=== PATIENT | female | born 1985 | race Hispanic/Latino ===

== ENCOUNTER 2020-01-15 05:28 | Emergency (ER) | payer MEDICAID ==
[~2020-01-15 05:28] MED LIST: CENTRUM PO
[2020-01-15] MEDS ORDERED: LIDOCAINE HCL 2% VISCOUS 15 ML UDCUP ONE (05:53)
[2020-01-15] MEDS ORDERED: MAG HYDROX/AL HYDROX/SIMETH ES 30 ML SUSP UDCUP ONE (05:53)
[2020-01-15] MEDS ORDERED: SODIUM CHLORIDE 0.9% 1000ML 1,000 ML IV ONE (05:54)
[2020-01-15] MEDS ORDERED: ONDANSETRON HCL 4 MG/2 ML VIAL ONE (05:54)
[2020-01-15 05:58] LABS: BASOPHILS % (AUTO) 0.2 % (0.0-5.0); EOSINOPHILS % (AUTO) 0.3 % (0.0-8.0); LYMPHOCYTES % (AUTO) 6.7 % (21.0-51.0); MEAN CORPUSCULAR HEMOGLOBIN 30.2 pg (27.0-33.0); MEAN CORPUSCULAR HGB CONC 33.7 g/dL (32.0-36.0); MEAN CORPUSCULAR VOLUME 89.6 fL (79-99); NEUTROPHILS % (AUTO) 90.4 % (40.0-77.0); PLATELET COUNT (AUTO) 407 K/uL (130-400); RED CELL DISTRIBUTION WIDTH 11.9 % (11.0-15.5); WHITE BLOOD COUNT (AUTO) 11.8 K/uL (4.8-10.8)
[2020-01-15 06:04] LABS: APPEARANCE,URINE Turbid (CLEAR); BILIRUBIN,URINE Negative (NEGATIVE); COLOR,URINE Yellow (YELLOW); GLUCOSE, URINE (UA) TRACE mg/dL (NEGATIVE); KETONES,URINE >=160 mg/dL (NEGATIVE); LEUKOCYTE ESTERASE ,URINE Trace (NEGATIVE); NITRATE,URINE Negative (NEGATIVE); OCCULT BLOOD,URINE Negative (NEGATIVE); PROTEIN,URINE POS 1+ mg/dL (NEGATIVE)
[2020-01-15 06:08] LABS: HCG,QUAL RESULT NEGATIVE (NEGATIVE)
[2020-01-15 06:13] LABS: AMPHET/METH SCREEN,URINE NEGATIVE (NEGATIVE); BARBITURATE SCREEN, URINE NEGATIVE (NEGATIVE); BENZODIAZEPINES SCREEN,URINE NEGATIVE (NEGATIVE); CANNABINOID SCREEN,URINE POSITIVE (NEGATIVE); COCAINE SCREEN,URINE NEGATIVE (NEGATIVE); OPIATE SCREEN,URINE NEGATIVE (NEGATIVE); PHENCYCLIDINE SCREEN,URINE NEGATIVE (NEGATIVE)
[2020-01-15 06:22] LABS: CARBON DIOXIDE 27 mmol/L (21-32); CHLORIDE 101 mmol/L (101-111); GLOMERULAR FILTR. RATE CALC 68 mL/min (>60); GLUCOSE,RANDOM 140 mg/dL (70-105); POTASSIUM 3.7 mmol/L (3.5-5.1); SODIUM SERUM 139 mmol/L (136-145); UREA NITROGEN, BLOOD 10 mg/dL (7-18)
[2020-01-15 06:23] LABS: ALANINE AMINOTRANSFERASE 26 U/L (12-78); ALBUMIN 4.5 g/dL (3.5-5.0); ASPARTATE AMINOTRANSFERASE 18 U/L (10-37); BILIRUBIN,DIRECT 0.2 mg/dL (0.0-0.3); BILIRUBIN,TOTAL 0.9 mg/dL (0.2-1.0); TOTAL PROTEIN, SERUM 8.7 g/dL (6.0-8.3)
[2020-01-15 06:51] LABS: LIPASE < 50 U/L (114-286)
[2020-01-15 07:30] LABS: BACTERIA,URINE Moderate /HPF (None Seen); RBC,URINE 0-1 /HPF (0-1)
== END 2020-01-15 07:15 | disposition home or self-care (01) ==
LOC: EDH 05:28
DX: K29.00 Acute gastritis without bleeding (principal); F12.10 Cannabis abuse, uncomplicated
CPT/HCPCS: 36415; 80048; 80076; 80305; 81001; 81025; 83690; 85025; 96361; 96374; 99283; J2405; J7030

== ENCOUNTER 2021-09-21 22:39 | Observation (INO) | payer MEDICAID ==
[~2021-09-21] VITALS: Ht 154.9 cm; Wt 63.5 kg
[2021-09-21] MEDS ORDERED: 0.9%NACL 1000ML 1,000 ML IV ONE (23:06)
[2021-09-21] MEDS ORDERED: LACTATED RINGERS 1000ML 1,000 ML IV ONE (23:06)
[2021-09-21] MEDS ORDERED: ONDANSETRON 4MG INJ ONE (23:42)
[2021-09-21 23:45] LABS: BASOPHILS % (AUTO) 0.2 % (0.0-5.0); EOSINOPHILS % (AUTO) 0.4 % (0.0-8.0); HEMATOCRIT 34.6 % (36-48); MEAN CORPUSCULAR HEMOGLOBIN 30.4 pg (27.0-33.0); MEAN CORPUSCULAR HGB CONC 35.3 g/dL (32.0-36.0); MEAN CORPUSCULAR VOLUME 86.3 fL (79-99); MONOCYTES % (AUTO) 7.6 % (3.0-13.0); NEUTROPHILS % (AUTO) 74.4 % (40.0-77.0); PLATELET COUNT (AUTO) 398 K/uL (130-400); RED BLOOD CELL COUNT(AUTO) 4.01 MIL/uL (4.00-5.50); RED CELL DISTRIBUTION WIDTH 11.9 % (11.0-15.5)
[2021-09-21 23:50] LABS: POTASSIUM 3.4 mmol/L (3.5-5.1)
[2021-09-22] VITALS (13 sets, daily range): BP systolic 92–116; BP diastolic 54–71
[2021-09-22] MEDS ORDERED: NACL IV SCH ×2
[2021-09-22] MEDS ORDERED: DEXTROSE IV SCH ×2
[2021-09-22] MEDS ORDERED: OXYTOCIN 10 USP UNITS/ML ONE ×2 (00:06→06:18)
[2021-09-22] MEDS ORDERED: DEXTROSE 5%-LACTATED RINGERS 1,000 ML IV ONE (00:14)
[2021-09-22 00:19] LABS: BILIRUBIN,TOTAL 0.9 mg/dL (0.2-1.0); TOTAL PROTEIN, SERUM 8.2 g/dL (6.0-8.3)
[2021-09-22 01:07] LABS: HEMATOCRIT 25.4 % (36-48)
[2021-09-22] MEDS ORDERED: OXYTOCIN IV SCH ×3 (02:30)
[2021-09-22] MEDS ORDERED: USP IV SCH ×3 (02:30)
[2021-09-22] MEDS ORDERED: DEXTROSE 5% IV SCH (02:30)
[2021-09-22] MEDS ORDERED: LACTATED RINGERS IV SCH (02:30)
[2021-09-22] MEDS ORDERED: LIDOCAINE PF 100MG/5ML (2%) SYRINGE 5ML ONE (05:41)
[2021-09-22] MEDS ORDERED: SUCCINYLCHOLINE CHLORIDE 20 MG/ML 10 ML VIAL ONE (05:41)
[2021-09-22] MEDS ORDERED: FENTANYL CITRATE PF 50 MCG/1 ML 2ML VIAL ONE (05:42)
[2021-09-22] MEDS ORDERED: MIDAZOLAM HCL 1 MG/ML 2ML VIAL ONE (05:42)
[2021-09-22] MEDS ORDERED: PROPOFOL 10 MG/ML 20ML VIAL IV ONE (05:42)
[2021-09-22] MEDS ORDERED: ROCURONIUM 10MG/1ML SYR 10 MG/ML ML ONE (05:42)
[2021-09-22] MEDS ORDERED: ONDANSETRON 4MG INJ ONE (05:44)
[2021-09-22] MEDS ORDERED: PHENYLEPHRINE HCL 10 MG/ML 1ML VIAL IV ONE (06:22)
[2021-09-22] MEDS ORDERED: CEFAZOLIN SODIUM 1 GM VIAL ONE (06:25)
[2021-09-22 10:24] LABS: HEMATOCRIT 18.2 % (36-48)
[2021-09-22] MEDS ORDERED: 0.9% NACL 500ML IV.SOLN 500 ML IV SCH (11:30)
[2021-09-22] MEDS ORDERED: IBUP-2070 PO (17:13)
[2021-09-22] MEDS ORDERED: FERR325T22 PO (17:14)
[2021-09-22 18:07] LABS: MEAN CORPUSCULAR HEMOGLOBIN 29.9 pg (27.0-33.0); MEAN CORPUSCULAR HGB CONC 33.7 g/dL (32.0-36.0); MEAN CORPUSCULAR VOLUME 88.8 fL (79-99); RED BLOOD CELL COUNT(AUTO) 3.04 MIL/uL (4.00-5.50); WHITE BLOOD COUNT (AUTO) 7.9 K/uL (4.8-10.8)
== END 2021-09-22 18:55 | disposition home or self-care (01) ==
LOC: EDH 22:39 → WSH 22:40 → LDH 09-22 05:25 → WSH 09-22 08:10
PROVIDERS: ADMIT Obstetrics & Gynecology; ATTEND Obstetrics & Gynecology
DX: O03.4 Incomplete spontaneous abortion without complication (principal); R11.10 Vomiting, unspecified
CPT/HCPCS: 36415 ×2; 36430; 59812; 76801; 80053; 84702; 85014 ×3; 85018 ×3; 85025; 85027; 86850; 86900; 86901; 86923; 96365; 96366; 99284; G0378 ×11; J0330; J0690; J2250; J2370; J2405 ×2; J2590 ×3; J3010; J3490 ×4; J7030; J7120 ×2; P9016 ×2; J2001; J2704; J7042

== ENCOUNTER 2022-07-28 19:14 | Emergency (ER) | payer MEDICAID ==
[~2022-07-28] VITALS: Ht 154.9 cm; Wt 68.0 kg
[~2022-07-28 19:14] MED LIST changes: -CENTRUM PO; +FERR325T22 PO; +IBUP-2070 PO
[2022-07-28] MEDS ORDERED: LACTATED RINGERS 1000ML 1,000 ML IV ONE (19:30)
[2022-07-28] MEDS ORDERED: MAG/ALUM/SIMETH 30 ML UDCUP PO ONE (19:30)
[2022-07-28] MEDS ORDERED: ONDANSETRON 4MG INJ IVP ONE (19:30)
[2022-07-28 19:40] LABS: BASOPHILS % (AUTO) 0.1 % (0.0-5.0); EOSINOPHILS % (AUTO) 0.1 % (0.0-8.0); HEMATOCRIT 40.8 % (36-48); LYMPHOCYTES % (AUTO) 5.3 % (21.0-51.0); MEAN CORPUSCULAR HEMOGLOBIN 30.9 pg (27.0-33.0); MEAN CORPUSCULAR HGB CONC 35.8 g/dL (32.0-36.0); MEAN CORPUSCULAR VOLUME 86.3 fL (79-99); MONOCYTES % (AUTO) 2.6 % (3.0-13.0); NEUTROPHILS % (AUTO) 91.3 % (40.0-77.0); PLATELET COUNT (AUTO) 399 K/uL (130-400); RED BLOOD CELL COUNT(AUTO) 4.73 MIL/uL (4.00-5.50); WHITE BLOOD COUNT (AUTO) 17.4 K/uL (4.8-10.8)
[2022-07-28 19:50] LABS: POTASSIUM 4.1 mmol/L (3.5-5.1)
[2022-07-28 20:01] LABS: ALBUMIN 4.7 g/dL (3.5-5.0); TOTAL PROTEIN, SERUM 8.8 g/dL (6.0-8.3)
[2022-07-28 20:20] LABS: APPEARANCE,URINE CLEAR (CLEAR); BILIRUBIN,URINE NEGATIVE (NEGATIVE); COLOR,URINE YELLOW (YELLOW); GLUCOSE, URINE (UA) NEGATIVE (NEGATIVE); KETONES,URINE 150 mg/dL (NEGATIVE); LEUKOCYTE ESTERASE ,URINE NEGATIVE Leu/uL (NEGATIVE); NITRATE,URINE NEGATIVE (NEGATIVE); OCCULT BLOOD,URINE NEGATIVE (NEGATIVE); PH,URINE 5.5 (5.0-8.0); PROTEIN,URINE 50 mg/dL (NEGATIVE); UROBILINOGEN,URINE 0.2 mg/dL (0.2-1.0)
[2022-07-28 20:24] LABS: BACTERIA,URINE RARE /HPF (None Seen); MUCUS,URINE RARE LPF (None Seen); SQUAMOUS EPITHELIAL CELL,UR MOD /HPF (0-2)
[2022-07-28] MEDS ORDERED: 0.9%NACL 1000ML 1,000 ML IV SCH (22:30)
[2022-07-28 22:34] LABS: AMPHET/METH SCREEN,URINE NEGATIVE (NEGATIVE); BARBITURATE SCREEN, URINE NEGATIVE (NEGATIVE); BENZODIAZEPINES SCREEN,URINE NEGATIVE (NEGATIVE); CANNABINOID SCREEN,URINE POSITIVE (NEGATIVE); COCAINE SCREEN,URINE POSITIVE (NEGATIVE)
[2022-07-28 22:35] LABS: PHENCYCLIDINE SCREEN,URINE NEGATIVE (NEGATIVE)
[2022-07-28 22:43] VITALS: BP 123/75
== END 2022-07-28 23:10 | disposition home or self-care (01) ==
LOC: EDH 19:14
DX: F12.10 Cannabis abuse, uncomplicated (principal); R10.13 Epigastric pain; F14.10 Cocaine abuse, uncomplicated; R11.2 Nausea with vomiting, unspecified; Z79.1 Long term (current) use of non-steroidal anti-inflammatories (NSAID)
CPT/HCPCS: 99283; 96374; 96361; 80053; 80305; 84702; 83690; 85025; 36415; 81001; J7120; J7030; J2405